=== PATIENT | female | born 2000 | race Caucasian/White ===

== ENCOUNTER 2022-06-21 13:10 | Emergency (ER) | payer OTHER ==
[~2022-06-21] VITALS: Ht 160 cm; Wt 54.4 kg
[2022-06-21] MEDS ORDERED: LEXAPRO5 MG (13:31)
[2022-06-21] MEDS ORDERED: BUSPIRONE HCL7.5 MG (13:31)
== END 2022-06-22 12:10 | disposition home or self-care (01) ==
LOC: ER 13:10
DX: F33.0 Major depressive disorder, recurrent, mild (principal); R45.851 Suicidal ideations; Z88.0 Allergy status to penicillin; Z20.822 Contact with and (suspected) exposure to COVID-19